=== PATIENT | female | born 1965 ===

== ENCOUNTER 2021-12-12 05:47 | Day surgery (SDC) | payer OTHER ==
[~2021-12-12 05:47] MED LIST: D3 + K2 DOTS 11 EACH PO; LIPITOR20 MG PO; LOPRESSOR25 MG PO; LORAZEPAM0.5 MG PO; LOSARTAN-HCTZ1 EACH PO; PROZAC40 MG PO; RESTORIL15 M1 PO; WELLBUTRIN SR150 MG PO
[2021-12-12] MEDS ORDERED: NAPR500T14 PO (10:51)
[2021-12-12] MEDS ORDERED: MORGIDOX100 MG PO (10:51)
== END 2021-12-12 17:00 | disposition home or self-care (01) ==
LOC: CIR.AMB 05:47
PROVIDERS: ATTEND Obstetrics & Gynecology
DX: D25.0 Submucous leiomyoma of uterus (principal); N88.2 Stricture and stenosis of cervix uteri; Z20.822 Contact with and (suspected) exposure to COVID-19; I10 Essential (primary) hypertension; J45.909 Unspecified asthma, uncomplicated; E78.5 Hyperlipidemia, unspecified; F32.A Depression, unspecified